=== PATIENT | male | born 1945 | race Caucasian/White ===

== ENCOUNTER → 2017-12-18 | Outpatient (CLI) | payer MEDICARE, OTHER ==
[~2017-12-18] MED LIST: CELE200C PO; FLAX1CAP PO; MULT-658 PO; OMEG1CAP6 PO
[2017-12-18 08:43] LABS: BILIRUBIN,URINE NEGATIVE (NEG); CLARITY,URINE CLEAR; COLOR,URINE YELLOW; NITRITE,URINE NEGATIVE (NEG); PROTEIN,URINE NEGATIVE (NEG-TRACE)
[2017-12-18 08:54] LABS: BACTERIA,URINE 0 /HPF (0-FEW); RBC,URINE OCC /HPF (0-2); WBC,URINE OCC /HPF (0-4)
[2017-12-18 09:06] LABS: BASO # 0.1 x10^3/uL (0.0-0.2); BASO % 1 % (0-3); EOS # 0.2 x10^3/uL (0.0-0.7); EOS % 3 % (0-3); HEMATOCRIT 44.8 % (39.0-53.0); HEMOGLOBIN 15.4 g/dL (13.0-17.5); LYMPH # 1.8 x10^3/uL (1.0-4.8); LYMPH % 22 % (24-48); MEAN CORPUSCULAR HEMOGLOBIN 32 pg (25-35); MEAN CORPUSCULAR HGB CONC 34 g/dL (31-37); MEAN CORPUSCULAR VOLUME 93 fL (79-100); MONO # 0.6 x10^3/uL (0.0-1.1); MONO % 8 % (0-9); NEUT # 5.3 x10^3uL (1.8-7.7); NEUT % 66 % (31-73); PLATELET COUNT 190 x10^3/uL (140-400); RED BLOOD COUNT 4.83 x10^6/uL (4.30-5.70); RED CELL DISTRIBUTION WIDTH 13.6 % (11.5-14.5); WHITE BLOOD COUNT 7.9 x10^3/uL (4.0-11.0)
[2017-12-18 09:13] LABS: ALBUMIN 3.7 g/dL (3.4-5.0); CALCIUM 9.2 mg/dL (8.5-10.1); CREATININE 0.8 mg/dL (0.7-1.3); GFR 95.3; POTASSIUM 4.7 mmol/L (3.5-5.1)
[2017-12-18 09:21] LABS: PROTHROMBIN TIME PATIENT 13.2 SEC (11.7-14.0)
--- NOTE | 2017-12-18 12:29 | EKG ---
[facility] [address] [place] [address] Test Date: 2017-12-18 Test Time: 12:22:39 Pat Name: YUKO GALLAGHER Department: Room: Gender: M Crisis Intervention Specialist: : [id number] Requested By: OTIS SALINAS Order Number: [id number] Reading MD: Jhoan Whaley MD Measurements Intervals [place] Rate: 87 P: AK: QRS: -20 QRSD: 90 T: 1 QT: 362 QTc: 436 Interpretive Statements ATRIAL FIBRILLATION WITH CONTROLLED VENTRICULAR RESPONSE NON-SPECIFIC ST/T CHANGES Electronically Signed On 12-18-2017 14:10:20 CDT by Jhoan Whaley MD
--- NOTE | 2017-12-18 14:46 | RAD ---
EXAM: Chest, 2 views. HISTORY: Preoperative evaluation. Pain. COMPARISON: 03/28/2011. FINDINGS: 2 views the chest are obtained. There is mild central predominant increased interstitial opacity. There is no consolidation, pleural effusion or pneumothorax. There is a stable prominent cardiac silhouette. There is a small nodular opacity overlying the right mid thorax. IMPRESSION: 1. Mild central predominant increased interstitial opacity likely due to atelectasis. 2. Small nodular opacity overlying the right mid thorax. Short-term radiographic follow-up can be performed to exclude a noncalcified nodule in this location. Electronically signed by: Greta Devlin MD (12/18/2017 2:42 PM) [facility]
== END | disposition home or self-care (01) ==
LOC: SURGPAT 12:21
PROVIDERS: ATTEND Orthopaedic Surgery
DX: Z01.818 Encounter for other preprocedural examination (principal); J98.11 Atelectasis; I48.91 Unspecified atrial fibrillation; R91.8 Other nonspecific abnormal finding of lung field
CPT/HCPCS: 36415; 71046; 80048; 81001; 82040; 85025; 85610; 85651; 85730; 87641; 93005

== ENCOUNTER 2018-01-02 05:50 | Inpatient (IN) | payer MEDICARE, OTHER ==
[~2018-01-02] VITALS: Ht 180.3 cm; Wt 117.9 kg
[2018-01-02] VITALS (9 sets, daily range): BP systolic 107–137; BP diastolic 54–90
[2018-01-02] MEDS ORDERED: MORPHINE SULFATE 5 MG, KETOROLAC 30MG VIAL 30 MG, ROPIVacaine 0.5% PF 60 ML, EPINEPHrin... INT ART ONE ×5 (06:00)
[2018-01-02] MEDS ORDERED: CELECOXIB 100 MG CAPSULE. PO PRN (06:00)
[2018-01-02] MEDS ORDERED: VANCOMYCIN 1GM IVPB FOR OMNI 250 ML IV PRN (06:00)
[2018-01-02] MEDS ORDERED: TRANEXAMIC ACID 1,000 MG in IV NS 50ML -- 1ST BAG INJ ONE (06:00)
[2018-01-02] MEDS ORDERED: HYDROcodone/APAP 7.5/325MG 1 TAB TABLET PO PRN ×2 (06:00→07:45)
[2018-01-02] MEDS ORDERED: ONDANSETRON PF 4 MG/2 ML VIAL. ONE (06:30)
[2018-01-02] MEDS ORDERED: PROPOFOL 20 ML IV ONE (06:30)
[2018-01-02] MEDS ORDERED: DEXAMETHASONE SOD PHOS 20 MG/5 ML VIAL. ONE (06:30)
[2018-01-02] MEDS ORDERED: ROCURONIUM 50 MG/5 ML VIAL. ONE (06:31)
[2018-01-02] MEDS ORDERED: fentaNYL PF VIAL 100 MCG/2 ML VIAL IV PRN ×3 (07:00→07:45)
[2018-01-02] MEDS ORDERED: HYDROmorphone 2 MG/ML VIAL IV PRN (07:00)
[2018-01-02] MEDS ORDERED: MORPHINE SULFATE 2 MG/ML VIAL. IV PRN ×2 (07:00→07:45)
[2018-01-02] MEDS ORDERED: PROCHLORPERAZINE 10 MG/2 ML VIAL. IV PRN ×2 (07:00→07:45)
[2018-01-02] MEDS ORDERED: ONDANSETRON PF 4 MG/2 ML VIAL. IV PRN (07:00)
[2018-01-02] MEDS ORDERED: LIDOCAINE 1% PF 2 ML VIAL. ID PRN (07:00)
[2018-01-02] MEDS: IV RINGERS,LACTATED 1000ML 1,000 ML IV SCH ×2 (07:09→12:25)
[2018-01-02 07:33] LABS: PROTHROMBIN TIME PATIENT 12.9 SEC (11.7-14.0)
[2018-01-02] MEDS ORDERED: fentaNYL PF VIAL 250 MCG/5 ML VIAL ONE (07:33)
[2018-01-02] MEDS ORDERED: MORPHINE SULFATE 4 MG/ML VIAL. IV PRN (07:45)
[2018-01-02] MEDS ORDERED: CALCIUM CARBONATE 500 MG TAB.CHEW PO PRN (07:45)
[2018-01-02] MEDS ORDERED: ZOLPIDEM 5 MG TABLET. PO PRN (07:45)
[2018-01-02] MEDS ORDERED: DEXTROSE 50% 25 GM / 50ML DISP.SYRIN. IV PRN (07:45)
[2018-01-02] MEDS ORDERED: oxyCODONE/APAP 5/325 1 TAB TABLET PO PRN (07:45)
[2018-01-02] MEDS ORDERED: 0.9 % SODIUM CHLORIDE 10 ML DISP.SYRIN. IV PRN (07:45)
[2018-01-02] MEDS ORDERED: traMADol 50 MG TABLET PO PRN ×2 (07:45)
[2018-01-02] MEDS ORDERED: ACETAMINOPHEN 325 MG TABLET. PO PRN (07:45)
[2018-01-02] MEDS ORDERED: TRANEXAMIC ACID 1,000 MG in IV NS 50ML -- 2ND BAG INJ ONE (08:00)
[2018-01-02] MEDS: FERROUS SULFATE 325 MG TABLET. PO SCH ×2 (08:00→17:04)
--- NOTE | 2018-01-02 08:25 | HP ---
ADMIT DATE: 01/02/2018 Preoperative History and Physical CHIEF COMPLAINT: Right hip pain. HISTORY OF PRESENT ILLNESS: The patient is a 72-year-old male with few-month history of right hip pain that started with what felt like a groin pull in his right hip and groin area, getting increasingly more severe, worse on startup and with activity. When the pain persisted and became very limiting, he went to the [place] pain clinic, had an intra-articular injection under x-ray and the pain had returned after about 2 months. He said 2 weeks prior to his initial visit in early November, he got relief from it for a short time, but lesser than what it was previously and is now severely limited due to right hip and groin pain, radiating down the front of his thigh to just above the knee, worse with ambulation. He, in between periods of effective, has been extremely limited in his daily activities. He noted previous excellent results from bilateral total knee arthroplasties done by Dr. De León and was very pleased with his stay in the [facility] at that time. PAST MEDICAL HISTORY: He really denies any past medical history. PAST SURGICAL HISTORY: Significant for bilateral knee replacements, right shoulder repair, and cataract surgery. SOCIAL HISTORY: He is a former smoker, occasionally social drinker of alcohol. Denies any drug use. MEDICATIONS: List is reviewed. ALLERGIES: He has no known drug allergies. PHYSICAL EXAMINATION: VITAL SIGNS: Temperature 97.8, pulse 93, respirations 20, blood pressure 181/83, 98% saturation on room air. HEENT: Atraumatic, normocephalic. HEART: Regular rate and rhythm. LUNGS: Clear to auscultation. ABDOMEN: Benign. EXTREMITIES: Examination of the right hip reveals decreased range of motion in all planes and pain on his already limited range of motion. Negative straight leg raise. Normal examination of the contralateral hip, well-healed incisions. Normal alignment with stability of bilateral total knees, normal alignment with stability of bilateral ankles with intact motor function, distal pulses, sensation, reflexes, and skin in both lower extremities throughout. IMAGING DATA: X-rays revealed severe degenerative arthritis of the right hip. IMPRESSION: Degenerative joint disease, right hip. TREATMENT PLAN: I had previously talked to him about the possibility of hip replacement; the risks, benefits, postoperative course of that procedure, possibility of infection, leg length inequality, instability, premature wear or loosening, continued pain, medical or other anesthetic complications among others. All his questions were answered regarding the procedure. He wishes to proceed with surgical evaluation and treatment, which will occur today with [facility] admission to follow. OTIS SALINAS MD DR: KAMALA/sara JOB#: [id number] / [id number]
[2018-01-02] MEDS: SENNOSIDES/DOCUSATE 8.6/50MG TABLET. PO SCH (09:00)
[2018-01-02] MEDS: MULTIVITAMIN with MINERAL TABLET. PO SCH (09:00)
[2018-01-02] MEDS ORDERED: SEVOFLURANE > 120 MINUTES. IH ONE (10:01)
[2018-01-02] MEDS ORDERED: ALBUMIN HUMAN 5% 500 ML IV ONE (10:01)
[2018-01-02 10:22] LABS: HEMATOCRIT 36.3 % (39.0-53.0); HEMOGLOBIN 12.1 g/dL (13.0-17.5); RED BLOOD COUNT 3.91 x10^6/uL (4.30-5.70); RED CELL DISTRIBUTION WIDTH 13.1 % (11.5-14.5); WHITE BLOOD COUNT 12.5 x10^3/uL (4.0-11.0)
--- NOTE | 2018-01-02 12:40 | RAD ---
EXAM: Pelvis, single view. HISTORY: Arthroplasty. COMPARISON: None. FINDINGS: A frontal view of the pelvis is obtained. There is a right hip arthroplasty in expected position. There is a cerclage wire traversing the femoral stem component. There is surrounding soft tissue gas due to recent surgery. IMPRESSION: Right hip arthroplasty in expected position. Electronically signed by: Greta Devlin MD (01/02/2018 12:37 PM) [facility]
[2018-01-02] MEDS: fentaNYL PF VIAL 100 MCG/2 ML VIAL IV PRN ×2 (12:51→13:12)
[2018-01-02 12:53] LABS: HEMATOCRIT 34.4 % (39.0-53.0); HEMOGLOBIN 11.4 g/dL (13.0-17.5)
[2018-01-02] MEDS ORDERED: IV DEXTROSE 5 %-0.45 % NACL 1,000 ML IV SCH (14:30)
[2018-01-02] MEDS ORDERED: WARFARIN 7.5 MG TABLET. PO ONE (16:00)
[2018-01-02] MEDS: KETOROLAC 30MG VIAL 30 MG, BUPIVACAINE MPF 0.25% 20 ML, EPINEPHrine 0.5 MG in TOTAL VOL... INT ART SCH (18:23)
[2018-01-02] MEDS: CELECOXIB 100 MG CAPSULE. PO SCH (20:32)
--- NOTE | 2018-01-02 23:30 | PDOC4 ---
Operative Note Operative Note Date of surgery: 01/02/2018 Preoperative diagnosis: Degenerative joint disease right hip Postoperative diagnosis: Same Operative procedure: Right total hip arthroplasty Surgeon: Cynthia Assist: Navneet Sarmiento Anesthesia: Gen. Estimated blood loss: Approximately 2000 mL Complications: Proximal femur fracture requiring cable reinforcement Operative indications: Patient is a 72-year-old male who has had progressive right hip pain increasingly limiting to his activities of daily living. Previous treatment as outlined in his clinic notes and history and physical dictated today. I had gone over with him previously risks benefits postoperative course of total hip arthroplasty and the possibility of infection fracture nerve or blood vessel damage instability premature wear or loosening continued pain medical or anesthetic complications among others all his questions were answered consent was obtained and he agrees to proceed with operative evaluation and treatment. Operative text: Patient was identified procedure verified patient placed in the supine position on the Cinebar fracture table. After adequate amounts of general anesthesia were administered both legs were placed in gentle traction and all bony prominences were well-padded the right hip was prepped and draped in standard sterile fashion. After timeout was performed patient procedure identified and verified and incision was made just distal and lateral to the anterior superior iliac spine along the tensor fascia kia muscle. Tensor fascia kia was brought laterally and in the interval between the rectus femoris the circumflex vessels were coagulated with the aqua Mantis device. Hip capsule was then split in a T fashion and femoral neck was cut under fluoroscopic guidance with a napkin ring of bone removed to allow removal of the femoral head which was then sized at approximately a 51 mm diameter. Reaming was carried out through about 54 mm with the acetabular rim lightly reamed with a 55 mm reamer a 56 mm hemispherical 3-hole coated acetabular shell was impacted into place in proper version and inclination under radiologic guidance and a single 35 mm cancellous screw was placed superiorly for further stability. A 40 mm inner diameter standard acetabular liner was impacted into place. The femur was then taken into maximum external rotation extension and adduction. Femoral canal was located and successive size broaching carried out up to a size 3 SMF Sun & Nephew stem standard offset was used to reproduce leg length and offset under fluoroscopic guidance with a +8 mm trial component providing the best re-creation of offset and leg length. Excellent stability was noted throughout trial components were removed thorough irrigation carried out normal saline solution and a size 3 standard offset SMF coated stem was impacted into place but was noted to rapidly seat thus raising the concern for a proximal femur fracture. A Sun & Nephew 2 mm cable was placed around the calcar area and greater tuberosity and tensioned to stabilize a small greater tuberosity fragment and neutralize any instability due to hoop stresses. Femoral component was removed and replaced with a size 4 SMF stem standard offset and a 40 mm Oxinium femoral head with a +8 modular taper sleeve was impacted into place and reduced and again stability offset and leg length were checked radiographically. Hemovac drain and pain catheter were placed pain catheter mixture was injected throughout the joint capsule subcutaneous tissues and fascia was closed with #1 PDS strata fix suture subcutaneous closure with buried Vicryl suture subcuticular closure with 3-0 strata fix Monocryl hector dressing was placed. Patient was returned to recovery room in stable condition having tolerated procedure well. Torsten certified first assistant was present and assisted in prepping draping retraction positioning and skin closure. Intraoperative hemoglobin of 11.4 was noted OTIS SALINAS MD Jan 02, 2018 23:30
[2018-01-03 02:13] VITALS: BP 77/37
[2018-01-03 03:25] VITALS: BP 100/56
[2018-01-03 04:39] LABS: HEMATOCRIT 25.1 % (39.0-53.0); HEMOGLOBIN 8.8 g/dL (13.0-17.5)
[2018-01-03 04:43] LABS: PROTHROMBIN TIME PATIENT 16.5 SEC (11.7-14.0)
[2018-01-03] MEDS: HYDROcodone/APAP 10/325 1 TAB TABLET PO PRN ×5 (05:04→20:53)
[2018-01-03] MEDS: KETOROLAC 30MG VIAL 30 MG, BUPIVACAINE MPF 0.25% 20 ML, EPINEPHrine 0.5 MG in TOTAL VOL... INT ART SCH (05:05)
[2018-01-03] MEDS ORDERED: MAGNESIUM HYDROXIDE 2,400 MG/30 ML ORAL.SUSP. PO PRN (06:00)
[2018-01-03 06:09] VITALS: BP 102/62
[2018-01-03] MEDS: SENNOSIDES/DOCUSATE 8.6/50MG TABLET. PO SCH (08:47)
[2018-01-03] MEDS: MULTIVITAMIN with MINERAL TABLET. PO SCH (08:47)
[2018-01-03] MEDS: CELECOXIB 100 MG CAPSULE. PO SCH ×2 (08:47→20:53)
[2018-01-03] MEDS: FERROUS SULFATE 325 MG TABLET. PO SCH ×2 (08:47→17:29)
[2018-01-03 13:06] VITALS: BP 111/67
[2018-01-03] MEDS ORDERED: BISACODYL 10 MG SUPP.RECT. PR PRN (16:00)
[2018-01-03] MEDS ORDERED: WARFARIN 5 MG TABLET. PO ONE (16:13)
--- NOTE | 2018-01-03 17:19 | PDOC ---
PROGRESS NOTES Subjective Subjective Problems overnight: A little lightheaded trying to get up and around yesterday did better last evening some soreness in the hip today no dizziness or lightheadedness Objective Vital Signs Vital Signs Date Time Temp Pulse Resp B/P (MAP) Pulse Ox O2 Delivery O2 Flow Rate FiO2 01/03/18 15:00 Room Air 01/03/18 13:06 120 20 111/67 (82) 01/03/18 06:09 98.5 94 98.5 01/02/18 20:00 2.0 Physical Exam On examination he does have some moderate bloody drainage on the hector dressing, leg lengths equal distal neurovascular status intact aside from some expected numbness lateral thigh about the incisional area Labs Laboratory Tests Test 01/02/18 07:05 01/02/18 09:59 01/02/18 12:45 01/03/18 03:55 Prothrombin Time 12.9 SEC (11.7-14.0) 16.5 SEC (11.7-14.0) Prothromb Time International Ratio 1.0 (0.8-1.1) 1.4 (0.8-1.1) Activated Partial Thromboplast Time 33 SEC (24-38) White Blood Count 12.5 x10^3/uL (4.0-11.0) Red Blood Count 3.91 x10^6/uL (4.30-5.70) Hemoglobin 12.1 g/dL (13.0-17.5) 11.4 g/dL (13.0-17.5) 8.8 g/dL (13.0-17.5) Hematocrit 36.3 % (39.0-53.0) 34.4 % (39.0-53.0) 25.1 % (39.0-53.0) Mean Corpuscular Volume 93 fL (79-100) Mean Corpuscular Hemoglobin 31 pg (25-35) Mean Corpuscular Hemoglobin Concent 33 g/dL (31-37) 35 g/dL (31-37) Red Cell Distribution Width 13.1 % (11.5-14.5) Platelet Count 187 x10^3/uL (140-400) Laboratory Tests Test 01/03/18 03:55 Hemoglobin 8.8 g/dL (13.0-17.5) Hematocrit 25.1 % (39.0-53.0) Mean Corpuscular Hemoglobin Concent 35 g/dL (31-37) Prothrombin Time 16.5 SEC (11.7-14.0) Prothromb Time International Ratio 1.4 (0.8-1.1) Imaging Postop x-rays show well-positioned implant equal leg lengths comparable offset and a cerclage wire around the calcar area and greater tuberosity Assessment Assessment POD# [1], S/P [right total hip arthroplasty] Plan Plan of Care Continue mobilize with physical therapy weightbearing as tolerated no hip precautions secondary to anterior approach Coumadin anticoagulation Monitor hemoglobin currently 8.8 asymptomatic OTIS SALINAS MD Jan 03, 2018 17:19
[2018-01-03 17:48] VITALS: BP 105/63
[2018-01-04 05:30] VITALS: BP 129/74
[2018-01-04] MEDS: HYDROcodone/APAP 10/325 1 TAB TABLET PO PRN (05:41)
[2018-01-04 06:34] LABS: HEMATOCRIT 24.7 % (39.0-53.0); HEMOGLOBIN 8.5 g/dL (13.0-17.5)
[2018-01-04 07:00] LABS: PROTHROMBIN TIME PATIENT 18.8 SEC (11.7-14.0)
[2018-01-04] MEDS: FERROUS SULFATE 325 MG TABLET. PO SCH ×2 (07:35→16:48)
[2018-01-04] MEDS: MULTIVITAMIN with MINERAL TABLET. PO SCH (07:35)
[2018-01-04] MEDS: CELECOXIB 100 MG CAPSULE. PO SCH ×2 (07:35→20:46)
[2018-01-04] MEDS: SENNOSIDES/DOCUSATE 8.6/50MG TABLET. PO SCH (07:35)
[2018-01-04] MEDS: oxyCODONE/APAP 7.5/325 1 TAB TABLET PO PRN ×3 (12:18→20:46)
[2018-01-04] MEDS ORDERED: WARFARIN 3 MG TABLET. PO ONE (16:00)
[2018-01-04 19:18] VITALS: BP 123/67
--- NOTE | 2018-01-04 22:08 | PDOC ---
PROGRESS NOTES Subjective Subjective Problems overnight: A bit more sore today got up and around relatively well with physical therapy no lightheadedness or other complaints Objective Vital Signs Vital Signs Date Time Temp Pulse Resp B/P (MAP) Pulse Ox O2 Delivery O2 Flow Rate FiO2 01/04/18 20:46 18 Room Air 01/04/18 19:18 98.3 95 123/67 (85) 95 98.3 01/02/18 20:00 2.0 Physical Exam On examination leg lengths are equal distal neurovascular status intact dressing with slight bloody drainage hector intact Labs Laboratory Tests Test 01/03/18 03:55 01/04/18 05:20 Hemoglobin 8.8 g/dL (13.0-17.5) 8.5 g/dL (13.0-17.5) Hematocrit 25.1 % (39.0-53.0) 24.7 % (39.0-53.0) Mean Corpuscular Hemoglobin Concent 35 g/dL (31-37) 34 g/dL (31-37) Prothrombin Time 16.5 SEC (11.7-14.0) 18.8 SEC (11.7-14.0) Prothromb Time International Ratio 1.4 (0.8-1.1) 1.6 (0.8-1.1) Laboratory Tests Test 01/04/18 05:20 Hemoglobin 8.5 g/dL (13.0-17.5) Hematocrit 24.7 % (39.0-53.0) Mean Corpuscular Hemoglobin Concent 34 g/dL (31-37) Prothrombin Time 18.8 SEC (11.7-14.0) Prothromb Time International Ratio 1.6 (0.8-1.1) Assessment Assessment POD# [2], S/P [right total hip arthroplasty] Plan Plan of Care Continue physical therapy Anticipate home tomorrow with outpatient physical therapy OTIS SALINAS MD Jan 04, 2018 22:08
[2018-01-05] MEDS: oxyCODONE/APAP 7.5/325 1 TAB TABLET PO PRN ×4 (02:04→14:55)
[2018-01-05 05:25] LABS: HEMATOCRIT 23.7 % (39.0-53.0); HEMOGLOBIN 8.1 g/dL (13.0-17.5)
[2018-01-05 05:29] VITALS: BP 97/65
[2018-01-05 05:30] LABS: PROTHROMBIN TIME PATIENT 19.9 SEC (11.7-14.0)
[2018-01-05] MEDS: FERROUS SULFATE 325 MG TABLET. PO SCH (07:44)
[2018-01-05] MEDS: SENNOSIDES/DOCUSATE 8.6/50MG TABLET. PO SCH (07:44)
[2018-01-05] MEDS: CELECOXIB 100 MG CAPSULE. PO SCH (07:45)
[2018-01-05] MEDS: MULTIVITAMIN with MINERAL TABLET. PO SCH (09:00)
[2018-01-05] MEDS ORDERED: WARF3TAB50 PO (11:11)
[2018-01-05] MEDS ORDERED: WARFARIN 3 MG TABLET. PO ONE (12:00)
[2018-01-05] MEDS ORDERED: WARFARIN 4 MG TABLET. PO ONE (12:00)
[2018-01-05 13:00] VITALS: BP 110/54
[2018-01-05] MEDS ORDERED: FERR325T14 PO (13:55)
[2018-01-05] MEDS ORDERED: OXYC-327 PO (14:00)
--- NOTE | 2018-01-05 21:22 | DS ---
DATE OF DISCHARGE: 01/05/2018 PRINCIPAL DIAGNOSIS: Right hip degenerative joint disease. PROCEDURE: Right total hip arthroplasty. DISPOSITION: Home with outpatient physical therapy. FOLLOWUP: Dr. Marie in 2 weeks. RESTRICTIONS: Weightbearing as tolerated. No hip precautions secondary to anterior approach. DISCHARGE MEDICATIONS: Percocet 7.5/325 one p.o. q.4 hours p.r.n. pain, Coumadin as directed by anticoagulation clinic. Resume preoperative medications. Maintain Aquacel dressing, may shower. Call for any redness, drainage, fever, chills, uncontrolled pain or other problems. BRIEF DESCRIPTION OF HOSPITAL COURSE: The patient is a 72-year-old male that had undergone right total hip arthroplasty with an anterior approach on 01/02/2018. He did sustain a fracture, which was cabled intraoperatively. Postoperatively, on day 0, was noted to be somewhat lightheaded, trying to get up and around. The next day, he did well with physical therapy and following fluid replacement, those symptoms resolved. He did have some soreness in the hip, slowing down his ambulation, but overall got up and around well. His hemoglobin was stable at 8.8 and 8.5 on subsequent days. Dressing was changed to an Aquacel dressing prior to his discharge and he was discharged home with planned outpatient physical therapy in stable condition. OTIS MARIE MD DR: KAMALA/sara JOB#: [id number] / [id number]
== END 2018-01-05 15:10 | disposition home or self-care (01) | DRG 469 ==
LOC: OPSVCIP 05:50 → 4 SOUTHEST 13:55
PROVIDERS: ADMIT Orthopaedic Surgery; ATTEND Orthopaedic Surgery
PROC: 0SR906Z Replacement of Right Hip Joint with Oxidized Zirconium on Polyethylene Synthetic Substitute, Open Approach (ICD-10-PCS; principal; 2018-01-02 07:30)
DX: M16.11 Unilateral primary osteoarthritis, right hip (principal); S72.009A Fracture of unspecified part of neck of unspecified femur, initial encounter for closed fracture; Z96.641 Presence of right artificial hip joint; Z87.891 Personal history of nicotine dependence; Z96.653 Presence of artificial knee joint, bilateral; Z79.899 Other long term (current) drug therapy
CPT/HCPCS: 36415; 72170; 76000; 85014; 85018; 85027; 85610; 85730; 86850; 86900; 86901; 86920; 88304; 88311; A7015; C1713; C1887; J0171; J0690; J1100; J1885; J2270; J2405; J2704; J2795; J3010; J3370; J3490; J7030; J7120; P9045; 97116; 97150; 97530; 97535

== ENCOUNTER → 2018-06-12 | Outpatient (CLI) | payer MEDICARE, OTHER ==
[~2018-06-12] MED LIST changes: +FERR325T14 PO; +FLUC200T4 PO; +NYST1POW5 MC; +OXYC1TAB19 PO; +OXYC5CAP PO; +TRAM50TA PO; +WARF2TAB PO; +WARF3TAB50 PO
[2018-06-12 13:58] LABS: BILIRUBIN,URINE NEGATIVE (NEG); CLARITY,URINE CLEAR; COLOR,URINE YELLOW; NITRITE,URINE NEGATIVE (NEG); PROTEIN,URINE NEGATIVE (NEG-TRACE); UROBILINOGEN,URINE 0.2 mg/dL (0.2 mg/dL)
[2018-06-12 14:04] LABS: SQUAMOUS EPITHELIAL CELL,UR FEW /LPF
[2018-06-12 14:06] LABS: BACTERIA,URINE FEW /HPF (0-FEW); RBC,URINE OCC /HPF (0-2)
[2018-06-12 14:13] LABS: BASO # 0.1 x10^3/uL (0.0-0.2); BASO % 1 % (0-3); EOS # 0.1 x10^3/uL (0.0-0.7); EOS % 1 % (0-3); HEMATOCRIT 42.2 % (39.0-53.0); HEMOGLOBIN 13.5 g/dL (13.0-17.5); LYMPH # 1.9 x10^3/uL (1.0-4.8); LYMPH % 21 % (24-48); MEAN CORPUSCULAR HEMOGLOBIN 27 pg (25-35); MEAN CORPUSCULAR HGB CONC 32 g/dL (31-37); MEAN CORPUSCULAR VOLUME 84 fL (79-100); MONO # 0.7 x10^3/uL (0.0-1.1); MONO % 8 % (0-9); NEUT # 6.2 x10^3uL (1.8-7.7); NEUT % 69 % (31-73); PLATELET COUNT 222 x10^3/uL (140-400); RED BLOOD COUNT 5.01 x10^6/uL (4.30-5.70); RED CELL DISTRIBUTION WIDTH 17.6 % (11.5-14.5)
[2018-06-12 14:22] LABS: ALBUMIN 3.9 g/dL (3.4-5.0); CALCIUM 9.1 mg/dL (8.5-10.1); CREATININE 0.8 mg/dL (0.7-1.3); GFR 95.3; POTASSIUM 4.6 mmol/L (3.5-5.1)
[2018-06-12 14:29] LABS: PROTHROMBIN TIME PATIENT 13.8 SEC (11.7-14.0)
== END | disposition home or self-care (01) ==
LOC: SURGPAT 13:18
PROVIDERS: ATTEND Orthopaedic Surgery
DX: Z01.812 Encounter for preprocedural laboratory examination (principal); Z96.641 Presence of right artificial hip joint; Z88.8 Allergy status to other drugs, medicaments and biological substances; Z87.891 Personal history of nicotine dependence
CPT/HCPCS: 36415; 80048; 81001; 82040; 85025; 85610; 85651; 85730; 87641

== ENCOUNTER 2018-06-19 08:33 | Inpatient (IN) | payer MEDICARE, OTHER ==
[~2018-06-19] VITALS: Ht 180.3 cm; Wt 117.9 kg
[2018-06-19] VITALS (7 sets, daily range): BP systolic 90–135; BP diastolic 61–106
[~2018-06-19 08:33] MED LIST changes: +HYDROmorphone 2 MG/ML VIAL IV PRN; +IV RINGERS,LACTATED 1000ML 1,000 ML IV SCH; +LIDOCAINE 1% PF 2 ML VIAL. ID PRN; +MORPHINE SULFATE 2 MG/ML VIAL. IV PRN; +MORPHINE SULFATE 5 MG, KETOROLAC 30MG VIAL 30 MG, ROPIVacaine 0.5% PF 60 ML, EPINEPHrin... INT ART ONE; -NYST1POW5 MC; +ONDANSETRON PF 4 MG/2 ML VIAL. IV PRN; -OXYC5CAP PO; +PROCHLORPERAZINE 10 MG/2 ML VIAL. IV PRN; -TRAM50TA PO; +TRANEXAMIC ACID 1,000 MG in IV NORMAL SALINE 50ML 50 ML INJ ONE; +VANCOMYCIN 1GM IVPB FOR OMNI 250 ML IV PRN; -WARF2TAB PO; +fentaNYL PF VIAL 100 MCG/2 ML VIAL IV PRN
[2018-06-19] MEDS: MELOXICAM 7.5 MG TABLET PO SCH (09:00)
[2018-06-19] MEDS ORDERED: HYDROcodone/APAP 7.5/325MG 1 TAB TABLET PO ONE (09:15)
[2018-06-19] MEDS ORDERED: DEXAMETHASONE SOD PHOS 20 MG/5 ML VIAL. ONE (09:40)
[2018-06-19] MEDS ORDERED: LIDOCAINE 2% PF 5 ML VIAL. ONE ×2 (09:40→13:32)
[2018-06-19] MEDS ORDERED: ONDANSETRON PF 4 MG/2 ML VIAL. ONE (09:40)
[2018-06-19] MEDS ORDERED: PHENYLEPHRINE in 0.9% NACL PF 1 MG/10 ML SYRINGE. IV ONE (09:40)
[2018-06-19] MEDS ORDERED: PROPOFOL 20 ML IV ONE (09:40)
[2018-06-19] MEDS ORDERED: SEVOFLURANE > 120 MINUTES. IH ONE (09:40)
[2018-06-19 09:42] LABS: PROTHROMBIN TIME PATIENT 13.9 SEC (11.7-14.0)
[2018-06-19] MEDS ORDERED: ROCURONIUM 50 MG/5 ML VIAL. ONE (10:26)
[2018-06-19] MEDS ORDERED: fentaNYL PF VIAL 100 MCG/2 ML VIAL ONE (10:26)
[2018-06-19] MEDS ORDERED: ESMOLOL 100 MG/10 ML VIAL. IVP ONE (10:52)
[2018-06-19] MEDS ORDERED: NEOSTIGMINE METHYLSULFATE 5 MG/5 ML SYRINGE. ONE (10:58)
[2018-06-19] MEDS ORDERED: PHENYLEPHRINE 10 MG/ML VIAL. ONE ×2 (11:08→12:34)
[2018-06-19] MEDS ORDERED: IV NORMAL SALINE 1000ML BAG 1,000 ML IV SCH (13:43)
[2018-06-19] MEDS ORDERED: 0.9 % SODIUM CHLORIDE 10 ML DISP.SYRIN. IV PRN (13:45)
[2018-06-19] MEDS ORDERED: MORPHINE SULFATE 2 MG/ML VIAL. IV PRN (13:45)
[2018-06-19] MEDS ORDERED: PROCHLORPERAZINE 5 MG TABLET. PO PRN (13:45)
[2018-06-19] MEDS ORDERED: ZOLPIDEM 5 MG TABLET. PO PRN (13:45)
[2018-06-19] MEDS ORDERED: CALCIUM CARBONATE 500 MG TAB.CHEW PO PRN (13:45)
[2018-06-19] MEDS ORDERED: DEXTROSE 50% 25 GM / 50ML DISP.SYRIN. IV PRN (13:45)
[2018-06-19] MEDS ORDERED: oxyCODONE IR 5 MG TABLET PO PRN (13:45)
[2018-06-19] MEDS ORDERED: fentaNYL PF VIAL 100 MCG/2 ML VIAL IV PRN (13:45)
--- NOTE | 2018-06-19 14:55 | RAD ---
EXAM: Pelvis, single view. HISTORY: Arthroplasty. COMPARISON: 04/11/2018 FINDINGS: Frontal views of the pelvis are obtained. There is a right hip arthroplasty with longstem femoral component overlying expected position. There is surrounding soft tissue gas, surgical drain and skin lorin due to recent surgery. There is suspected heterotopic ossification and periosteal reaction surrounding the proximal femur. IMPRESSION: Revision right hip arthroplasty overlying expected position. Electronically signed by: Greta Devlin MD (06/19/2018 2:52 PM) [place] [id number]
--- NOTE | 2018-06-19 15:41 | NUR ---
received from recovery. He is awake and oriented to name, slow to comprehend instructions. at bedside. states that he has a rash in both axillas and was started on Diflucan and brought the medication. he has good pulses, strength and motion in bilateral lower extremities. he is complaining of his right eye Something is in it". unable to note any foreign body but is red and tearful. cool cloth applied to right eye for comfort. he is rating his pain"4"
[2018-06-19] MEDS ORDERED: WARFARIN 7.5 MG TABLET. PO ONE (16:00)
[2018-06-19] MEDS: MULTIVITAMIN with MINERAL TABLET. PO SCH (16:43)
[2018-06-19] MEDS: FERROUS SULFATE 325 MG TABLET. PO SCH (16:43)
[2018-06-19] MEDS: SENNOSIDES/DOCUSATE 8.6/50MG TABLET. PO SCH (16:43)
[2018-06-19] MEDS ORDERED: POLYVINYL ALCOHOL 1.4% OPHTH SOLUTION 15ML BOTTLE. OU PRN (17:15)
--- NOTE | 2018-06-19 17:30 | PDOC4 ---
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 Estimated blood loss: 800 mL Complications: None Operative indications: Mr. Dominiqeu had undergone previous total hip arthroplasty and was noted to have postoperative pain with some subsidence. He had had a calcar area fracture that was cabled and appeared initially stable but he went on to have continued pain and subsidence with a leg length inequality and ongoing pain that was unresponsive to continued management. I gone over with him the possibility of loosening and the recommendation for revision of his femoral stem to a longer stem that came stability in other areas of the bone. We talked about the possibility of continued pain instability infection nerve or blood vessel damage medical or other anesthetic complications among others all his questions were answered he wishes to proceed with surgical evaluation and treatment Operative text: Patient was identified procedure verified patient placed in the supine position on the operating table. After adequate amounts of general anesthesia were administered he was placed in the decubitus position right side up using the Stulberg hip positioner and all bony prominences were well-padded. Right hip was prepped and draped in standard sterile fashion and after timeout was performed patient procedure identified and verified a standard posterior approach was carried out to the right hip with a curvilinear incision made over the greater trochanter the iliotibial band and gluteal fascia were split in line with their fibers and a Charnley retractor was placed external rotators were detached from their insertion and hip capsule was split in a T fashion. The hip was dislocated femoral stem was grossly loose and femoral head and stem were removed. Bone was healed but the cable had eroded somewhat into the calcar area which showed some fragmentation. I therefore removed the cable and elected to proceed with a revision readapt Sun & Nephew femoral stem. The acetabular component was well fixed with no signs of significant wear and was retained. Reaming was carried out up to a size 18 with a 240 mm stem length proximal reaming was carried out up to a size 6 to accommodate an additional proximal sleeve for good contact and ingrowth. The standard offset trial was carried out and achieved both episcopalian of offset and leg length with a +8 construct. The trial components were reviewed along with assessment of his leg length and offset with a anterior posterior view x-ray in the operating room. Excellent fit of the components was noted. Trial components were removed thorough irrigation he is with normal saline solution and a standard offset 18 mm diameter by 240 mm length Sun & Nephew readapt revision femoral stem was impacted into place using a small modular sleeve proximally to correspond to the size 6 reamer. Excellent stability was noted both in terms of rotational control as well as leg length. A 40 mm Oxinium head with a +8 neck length adapter was impacted to engage the Vázquez taper and was reduced to the hip joint. He had excellent episcopalian of his leg length offset and excellent stability to about 75 internal rotation at 90 hip flexion no anterior instability was observed whatsoever he had some slight tightness of the hip flexors which was a preoperative finding but I judged that I could not go down in size or length and maintain his stability. Thorough irrigation carried out normal saline solution hip capsule was repaired with #5 Ethibond sutures external rotators were reattached transosseously with #5 Ethibond as well. Hemovac drain and pain catheter were placed pain catheter mixture was injected throughout the joint capsule fascia closure was accomplished with #1 PDS strata fix suture in a running fashion subcutaneous closure and layered fashion with buried Vicryl suture skin closure with lorin a hector dressing was applied patient was returned to recovery room in stable condition having tolerated procedure well OTIS SALINAS MD Jun 19, 2018 17:29
[2018-06-19] MEDS: ONDANSETRON PF 4 MG/2 ML VIAL. IV SCH (18:00)
[2018-06-19] MEDS: ONDANSETRON ODT 4 MG TAB.RAPDIS. PO SCH (18:00)
--- NOTE | 2018-06-19 18:23 | NUR ---
bill is doing well. he is up in the chair at this time and states the pain is much better with movement compared to prior to surgery. dressing remains intact, Hemovac and iac intact. remains at bedside
[2018-06-19] MEDS: KETOROLAC 30MG VIAL 30 MG, BUPIVACAINE MPF 0.25% 20 ML, EPINEPHrine 0.5 MG in TOTAL VOL... INT ART SCH (18:37)
[2018-06-19] MEDS: oxyCODONE IR 5 MG TABLET PO PRN (20:45)
[2018-06-19] MEDS ORDERED: VANCOMYCIN 1 GM in IV NORMAL SALINE 250ML 250 ML IV ONE (22:00)
[2018-06-20] MEDS: ONDANSETRON PF 4 MG/2 ML VIAL. IV SCH ×3 (00:07→12:00)
[2018-06-20 02:14] VITALS: BP 86/62
[2018-06-20 03:43] LABS: PROTHROMBIN TIME PATIENT 15.9 SEC (11.7-14.0)
[2018-06-20] MEDS ORDERED: MAGNESIUM HYDROXIDE 2,400 MG/30 ML ORAL.SUSP. PO PRN (06:00)
[2018-06-20 06:14] VITALS: BP 90/54
[2018-06-20] MEDS: GABAPENTIN 100 MG CAPSULE. PO SCH ×2 (06:23→17:43)
[2018-06-20] MEDS: ONDANSETRON ODT 4 MG TAB.RAPDIS. PO SCH ×3 (06:23→12:00)
[2018-06-20] MEDS: traMADol 50 MG TABLET PO SCH ×3 (06:24→17:47)
[2018-06-20] MEDS: KETOROLAC 30MG VIAL 30 MG, BUPIVACAINE MPF 0.25% 20 ML, EPINEPHrine 0.5 MG in TOTAL VOL... INT ART SCH (06:24)
--- NOTE | 2018-06-20 07:36 | PDOC ---
ORTHO PROGRESS NOTES Subjective Patient states feeling well and better than preop. Post-op Day: 1 Procedure Revision of femoral stem RTHA Vitals Vital Signs Date Time Temp Pulse Resp B/P (MAP) Pulse Ox O2 Delivery O2 Flow Rate FiO2 06/20/18 06:24 18 96 Nasal Cannula 2.0 06/20/18 06:14 98.5 121 90/54 (66) 98.5 Labs Laboratory Tests Test 06/19/18 09:25 06/20/18 03:23 Prothrombin Time 13.9 SEC (11.7-14.0) 15.9 SEC (11.7-14.0) Prothromb Time International Ratio 1.1 (0.8-1.1) 1.3 (0.8-1.1) Activated Partial Thromboplast Time 32 SEC (24-38) Hemoglobin 10.0 g/dL (13.0-17.5) Hematocrit 31.0 % (39.0-53.0) Mean Corpuscular Hemoglobin Concent 32 g/dL (31-37) Laboratory Tests Test 06/19/18 09:25 06/20/18 03:23 Prothrombin Time 13.9 SEC (11.7-14.0) 15.9 SEC (11.7-14.0) Prothromb Time International Ratio 1.1 (0.8-1.1) 1.3 (0.8-1.1) Activated Partial Thromboplast Time 32 SEC (24-38) Hemoglobin 10.0 g/dL (13.0-17.5) Hematocrit 31.0 % (39.0-53.0) Mean Corpuscular Hemoglobin Concent 32 g/dL (31-37) Notes awake and alert Assessment and Plan POD3 1 S/P Rev right femoral stem right total hip arthoplasty calf soft and non tender motor and sensory intact distally moving extremities well PT today as tolerated SHANTEL LYNCH APRN Jun 20, 2018 07:36
[2018-06-20 08:42] VITALS: BP 105/58
[2018-06-20] MEDS: FLUCONAZOLE 200MG TABLET PO SCH (08:43)
[2018-06-20] MEDS: ACETAMINOPHEN 500 MG TABLET PO SCH ×3 (08:44→21:22)
[2018-06-20] MEDS: SENNOSIDES/DOCUSATE 8.6/50MG TABLET. PO SCH (08:44)
[2018-06-20] MEDS: MULTIVITAMIN with MINERAL TABLET. PO SCH (08:44)
[2018-06-20] MEDS: FERROUS SULFATE 325 MG TABLET. PO SCH ×2 (08:44→17:42)
[2018-06-20] MEDS: CELECOXIB 100 MG CAPSULE. PO SCH (08:45)
[2018-06-20] MEDS: MELOXICAM 7.5 MG TABLET PO SCH (08:45)
[2018-06-20] MEDS ORDERED: FLUCONAZOLE 100 MG TABLET. PO SCH (09:00)
[2018-06-20] MEDS: oxyCODONE IR 5 MG TABLET PO PRN ×2 (09:35→21:21)
[2018-06-20 10:14] VITALS: BP 95/58
--- NOTE | 2018-06-20 11:04 | NUR ---
Pharmacy Warfarin Dosing Note S:Pharmacy consulted to assist with anticoagulation therapy started 06/19/18 with target INR: 1.6 - 2.5 O:ELLIOTTYUKO ESPINO is a 72 year old M with [facility]RA LABS: Last INR: 1.3 Last HGB: 10.0 Last HCT: 31.0 Last PLT: Last dose of 7.5 mg given on 06/19/18 at 1643 Previous Regimen: Vitamin K given: Drug Interaction Changes: Ongoing Drug Interactions: A:INR of 1.3 is below desired range. Target range for this patient is: 1.6 - 2.5 P: Warfarin dose: 5 mg Today at 1600 Bridge Therapy: None Next INR due 06/21/18 Pharmacy anticoagulation service will continue to follow. MICAELA GOMEZ RP, 06/20/18 0719
[2018-06-20] MEDS ORDERED: ONDANSETRON PF 4 MG/2 ML VIAL. IV PRN (12:00)
[2018-06-20] MEDS ORDERED: ONDANSETRON ODT 4 MG TAB.RAPDIS. PO PRN (12:00)
--- NOTE | 2018-06-20 12:13 | NUR ---
Zofran po/iv held, no nausea or vomiting noted
[2018-06-20] MEDS ORDERED: WARFARIN 5 MG TABLET. PO ONE (16:00)
[2018-06-20] MEDS ORDERED: BISACODYL 10 MG SUPP.RECT. PR PRN (16:00)
--- NOTE | 2018-06-20 17:07 | NUR ---
anh is doing well. pain is controlled with oral medication. tolerated both rehab sessions
[2018-06-20 17:44] VITALS: BP 84/60
--- NOTE | 2018-06-20 17:48 | NUR ---
original surgical dressing removed. Hemovac and tolerated well. and iac removed (blue tip intact).
--- NOTE | 2018-06-20 17:59 | PDOC ---
PROGRESS NOTES Subjective Subjective Problems overnight: Did extremely well with physical therapy today, minimal pain on ambulation or transfers he does have some muscular soreness Objective Vital Signs Vital Signs Date Time Temp Pulse Resp B/P (MAP) Pulse Ox O2 Delivery O2 Flow Rate FiO2 06/20/18 17:47 Room Air 06/20/18 17:44 98.1 99 16 84/60 (68) 95 98.1 06/20/18 07:51 2.0 Physical Exam Dressing is clean dry and intact leg lengths are equal distal neurovascular status intact he has excellent stability and good motion Labs Laboratory Tests Test 06/19/18 09:25 06/20/18 03:23 Prothrombin Time 13.9 SEC (11.7-14.0) 15.9 SEC (11.7-14.0) Prothromb Time International Ratio 1.1 (0.8-1.1) 1.3 (0.8-1.1) Activated Partial Thromboplast Time 32 SEC (24-38) Hemoglobin 10.0 g/dL (13.0-17.5) Hematocrit 31.0 % (39.0-53.0) Mean Corpuscular Hemoglobin Concent 32 g/dL (31-37) Laboratory Tests Test 06/20/18 03:23 Hemoglobin 10.0 g/dL (13.0-17.5) Hematocrit 31.0 % (39.0-53.0) Mean Corpuscular Hemoglobin Concent 32 g/dL (31-37) Prothrombin Time 15.9 SEC (11.7-14.0) Prothromb Time International Ratio 1.3 (0.8-1.1) Assessment Assessment POD# [], S/P [revision femoral stem right hip] Plan Plan of Care Continue mobilize with physical therapy, standard total hip precautions Plan likely outpatient physical therapy starting Monday following discharge OTIS SALINAS MD Jun 20, 2018 17:59
[2018-06-20] MEDS: diphenhydrAMINE 50 MG/ML VIAL IV PRN (21:22)
[2018-06-21] MEDS: traMADol 50 MG TABLET PO SCH ×4 (00:27→17:10)
[2018-06-21] MEDS: ACETAMINOPHEN 500 MG TABLET PO SCH ×4 (03:15→20:51)
[2018-06-21 05:41] LABS: HEMATOCRIT 28.6 % (39.0-53.0); HEMOGLOBIN 9.3 g/dL (13.0-17.5)
[2018-06-21 05:42] VITALS: BP 103/68
[2018-06-21 05:58] LABS: PROTHROMBIN TIME PATIENT 20.4 SEC (11.7-14.0)
[2018-06-21] MEDS: GABAPENTIN 100 MG CAPSULE. PO SCH ×2 (06:19→17:11)
[2018-06-21] MEDS: FERROUS SULFATE 325 MG TABLET. PO SCH ×2 (07:49→17:10)
[2018-06-21] MEDS: MULTIVITAMIN with MINERAL TABLET. PO SCH (07:49)
[2018-06-21] MEDS: CELECOXIB 100 MG CAPSULE. PO SCH (07:50)
[2018-06-21] MEDS: FLUCONAZOLE 200MG TABLET PO SCH (07:57)
[2018-06-21] MEDS: SENNOSIDES/DOCUSATE 8.6/50MG TABLET. PO SCH (09:00)
--- NOTE | 2018-06-21 12:51 | NUR ---
Pharmacy Warfarin Dosing Note S:Pharmacy consulted to assist with anticoagulation therapy started 06/19/18 with target INR: 1.6 - 2.5 O:ELLIOTTYUKO ESPINO is a 72 year old M with [facility]RA LABS: Last INR: 1.8 Last HGB: 9.3 Last HCT: 28.6 Last PLT: - Last dose of 5 mg given on 06/20/18 at 1615 Previous Regimen: NA Vitamin K given: N Drug Interaction Changes: Same Interacting Drug Ongoing Drug Interactions: Celecoxib, fluconazole A:INR of 1.8 is within desired range. Target range for this patient is: 1.6 - 2.5 P: Warfarin dose: 2.5 mg Today at 1600 Bridge Therapy: None Next INR due 06/22/18 Pharmacy anticoagulation service will continue to follow. CORY QIU [facility], 06/21/18 [id number]
[2018-06-21] MEDS ORDERED: WARFARIN 2.5 MG TABLET. PO ONE (16:00)
[2018-06-21 18:06] VITALS: BP 103/58
[2018-06-21] MEDS: oxyCODONE IR 5 MG TABLET PO PRN (20:51)
[2018-06-21] MEDS: diphenhydrAMINE 50 MG/ML VIAL IV PRN (20:51)
[2018-06-21] MEDS ORDERED: diphenhydrAMINE HCL 25 MG CAPSULE PO ONE (21:00)
[2018-06-22] MEDS: ACETAMINOPHEN 500 MG TABLET PO SCH ×3 (03:00→14:13)
[2018-06-22] MEDS: oxyCODONE IR 5 MG TABLET PO PRN ×3 (03:59→14:14)
[2018-06-22 05:03] LABS: HEMATOCRIT 28.3 % (39.0-53.0); HEMOGLOBIN 9.2 g/dL (13.0-17.5)
[2018-06-22 05:12] LABS: PROTHROMBIN TIME PATIENT 22.7 SEC (11.7-14.0)
[2018-06-22 06:00] VITALS: BP 111/72
[2018-06-22] MEDS: GABAPENTIN 100 MG CAPSULE. PO SCH (06:17)
[2018-06-22] MEDS: traMADol 50 MG TABLET PO SCH ×3 (06:17→12:28)
--- NOTE | 2018-06-22 06:33 | NUR ---
Slept in recliner all noc. Saline lock DC'd earlier. Anticipates dismissal today.
--- NOTE | 2018-06-22 07:32 | PDOC ---
PROGRESS NOTES Subjective Subjective Problems overnight: Doing very well aside from some expected muscle soreness weightbearing with minimal discomfort and progressing with ambulation and transfers Objective Vital Signs Vital Signs Date Time Temp Pulse Resp B/P (MAP) Pulse Ox O2 Delivery O2 Flow Rate FiO2 06/22/18 06:17 20 Room Air 06/22/18 06:00 98.0 93 111/72 (85) 97 98.0 06/20/18 07:51 2.0 Physical Exam Demarco dressing intact leg lengths equal distal neurovascular status intact Rash and armpits and groin Labs Laboratory Tests Test 06/21/18 05:05 06/22/18 04:00 Hemoglobin 9.3 g/dL (13.0-17.5) 9.2 g/dL (13.0-17.5) Hematocrit 28.6 % (39.0-53.0) 28.3 % (39.0-53.0) Mean Corpuscular Hemoglobin Concent 33 g/dL (31-37) 32 g/dL (31-37) Prothrombin Time 20.4 SEC (11.7-14.0) 22.7 SEC (11.7-14.0) Prothromb Time International Ratio 1.8 (0.8-1.1) 2.0 (0.8-1.1) Laboratory Tests Test 06/22/18 04:00 Hemoglobin 9.2 g/dL (13.0-17.5) Hematocrit 28.3 % (39.0-53.0) Mean Corpuscular Hemoglobin Concent 32 g/dL (31-37) Prothrombin Time 22.7 SEC (11.7-14.0) Prothromb Time International Ratio 2.0 (0.8-1.1) Assessment Assessment POD# [], 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
[2018-06-22] MEDS: FERROUS SULFATE 325 MG TABLET. PO SCH (08:26)
[2018-06-22] MEDS: SENNOSIDES/DOCUSATE 8.6/50MG TABLET. PO SCH (08:26)
[2018-06-22] MEDS: CELECOXIB 100 MG CAPSULE. PO SCH (08:26)
[2018-06-22] MEDS: MULTIVITAMIN with MINERAL TABLET. PO SCH (08:26)
[2018-06-22] MEDS: FLUCONAZOLE 200MG TABLET PO SCH (08:27)
[2018-06-22] MEDS ORDERED: NYSTATIN TOPICAL POWDER 15GM BOTTLE. TP SCH (09:00)
--- NOTE | 2018-06-22 10:40 | NUR ---
Pharmacy Warfarin Dosing Note S:Pharmacy consulted to assist with anticoagulation therapy started 06/19/18 with target INR: 1.6 - 2.5 O:ELLIOTTYUKO ESPINO is a 72 year old M with [facility]: Last INR: 2.0 Last HGB: 9.2 Last HCT: 28.3 Last PLT: - Last dose of 2.5 mg given on 06/21/18 at 1615 Previous Regimen: Vitamin K given: N Drug Interaction Changes: Same Interacting Drug Ongoing Drug Interactions: Celecoxib, fluconazole A:INR of 2.0 is within desired range. Target range for this patient is: 1.6 - 2.5 P: Warfarin dose: 2 mg Prior to Discharge Bridge Therapy: None Next INR due Monday, June 25. Pharmacy anticoagulation service will continue to follow. CHRISTOPHER COOK RPH, 06/22/18 [id number]
[2018-06-22] MEDS ORDERED: NYST1POW5 MC (12:53)
[2018-06-22] MEDS ORDERED: OXYC5CAP PO (12:54)
[2018-06-22] MEDS ORDERED: TRAM50TA PO (12:55)
[2018-06-22] MEDS ORDERED: WARF2TAB PO (12:57)
[2018-06-22] MEDS ORDERED: WARFARIN 2 MG TABLET. PO ONE (14:00)
--- NOTE | 2018-06-22 14:25 | NUR ---
Discharge instructions given with prescriptions. Answered questions and concerns. Both pt and spouse verbalized understanding. Pt discharged home with outpatient therapy.
--- NOTE | 2018-07-02 09:14 | RAD ---
EXAM: Right hip, 2 views. HISTORY: Arthroplasty. COMPARISON: 04/11/2018 FINDINGS: 2 intraoperative images of the right hip and pelvis are obtained. There is a revision right hip arthroplasty without femoral head component overlying expected position. There is an overlying soft tissue defect and soft tissue gas due to intraoperative imaging. IMPRESSION: Intraoperative imaging during revision right hip arthroplasty surgery. Electronically signed by: Greta Devlin MD (07/02/2018 9:12 AM) [facility]
== END 2018-06-22 14:25 | disposition home or self-care (01) | DRG 468 ==
LOC: OPSVCIP 08:33 → 4 SOUTHEST 15:01
PROVIDERS: ADMIT Orthopaedic Surgery; ATTEND Orthopaedic Surgery
PROC: 0SPR0JZ Removal of Synthetic Substitute from Right Hip Joint, Femoral Surface, Open Approach (ICD-10-PCS; 2018-06-19)
PROC: 0SRR01Z Replacement of Right Hip Joint, Femoral Surface with Metal Synthetic Substitute, Open Approach (ICD-10-PCS; principal; 2018-06-19 10:15)
DX: T84.030A Mechanical loosening of internal right hip prosthetic joint, initial encounter (principal); M21.70 Unequal limb length (acquired), unspecified site; D64.9 Anemia, unspecified
CPT/HCPCS: 36415; 72170; 73501; 85014; 85018; 85610; 85730; 86850; 86900; 86901; A7015; J0171; J1100; J1200; J1885; J2001; J2270; J2370; J2405; J2704; J2710; J2795; J3010; J3370; J3490; J7030; J7050; J7120; Q0162; Q0163; 97116; 97150; 97530; 97535